=== PATIENT | female | born 1975 ===

== ENCOUNTER → 2021-06-10 07:26 | Outpatient (CLI) | payer OTHER | END | disposition home or self-care (01) | LOC: LAB 07:26 | PROVIDERS: ATTEND Obstetrics & Gynecology Gynecology | DX: R53.83 Other fatigue (principal); E78.49 Other hyperlipidemia; E55.9 Vitamin D deficiency, unspecified ==

== ENCOUNTER 2021-06-10 07:56 | Outpatient (CLI) | payer OTHER | END 2021-06-10 08:12 | disposition home or self-care (01) | LOC: MAMO-SONO 07:56 | DX: N64.89 Other specified disorders of breast (principal); Z12.31 Encounter for screening mammogram for malignant neoplasm of breast; N64.4 Mastodynia; D24.2 Benign neoplasm of left breast ==

== ENCOUNTER 2021-07-20 08:00 | Outpatient (CLI) | payer OTHER | END 2021-07-20 10:04 | disposition home or self-care (01) | LOC: MRI 08:00 | DX: M46.1 Sacroiliitis, not elsewhere classified (principal) | CPT/HCPCS: 72148 ==

== ENCOUNTER 2021-07-20 09:08 | Outpatient (CLI) | payer OTHER | END 2021-07-20 09:12 | disposition home or self-care (01) | LOC: LAB 09:08 | DX: L40.50 Arthropathic psoriasis, unspecified (principal) ==

== ENCOUNTER 2021-10-09 07:44 | Outpatient (CLI) | payer OTHER | END 2021-10-09 07:47 | disposition home or self-care (01) | LOC: SONOGRAMA 07:44 | PROVIDERS: ATTEND Obstetrics & Gynecology Gynecology | DX: N60.12 Diffuse cystic mastopathy of left breast (principal); N64.59 Other signs and symptoms in breast ==

== ENCOUNTER 2021-12-12 09:13 | Outpatient (CLI) | payer OTHER | END 2021-12-12 09:27 | disposition home or self-care (01) | LOC: LAB 09:13 | PROVIDERS: ATTEND Internal Medicine | DX: R53.83 Other fatigue (principal); R53.1 Weakness; E55.9 Vitamin D deficiency, unspecified; M79.10 Myalgia, unspecified site; M25.50 Pain in unspecified joint ==

== ENCOUNTER 2022-05-28 09:26 | Outpatient (CLI) | payer OTHER | END 2022-05-28 09:41 | disposition home or self-care (01) | LOC: SONOGRAMA 09:26 | PROVIDERS: ATTEND Orthopaedic Surgery Sports Medicine | DX: M75.51 Bursitis of right shoulder (principal); M75.52 Bursitis of left shoulder ==

== ENCOUNTER 2022-10-30 07:32 | Outpatient (CLI) | payer OTHER | END 2022-10-30 07:33 | disposition home or self-care (01) | LOC: LAB 07:32 | DX: E55.9 Vitamin D deficiency, unspecified (principal); M79.10 Myalgia, unspecified site; R53.83 Other fatigue; M25.50 Pain in unspecified joint; R53.1 Weakness; R53.82 Chronic fatigue, unspecified; E78.5 Hyperlipidemia, unspecified ==

== ENCOUNTER 2022-10-30 08:01 | Outpatient (CLI) | payer OTHER | END 2022-10-30 08:07 | disposition home or self-care (01) | LOC: RAD 08:01 | PROVIDERS: ATTEND Internal Medicine | DX: M25.541 Pain in joints of right hand (principal); M25.542 Pain in joints of left hand ==

== ENCOUNTER 2023-10-22 10:52 | Outpatient (CLI) | payer OTHER ==
[2023-10-22 11:34] LABS: URINE APPEARANCE Clear; URINE BILIRRUBIN Negative (NEGATIVE); URINE BLOOD Trace; URINE COLOR Yellow; URINE GLUCOSE Negative (NEGATIVE); URINE LEUKOCYTE Negative; URINE NITRATE Negative; URINE PROTEIN Negative (NEGATIVE); URINE UROBILINOGEN 0.2 E.U./dl
[2023-10-22 11:35] LABS: URINE BACTERIA 585.8 uL (0.0-1933); URINE EPITHELIAL CELLS 9.2 uL (0.0-38.8); URINE RBC 6.1 uL (0.0-20.8); URINE WBC 3.7 uL (0.0-23.2)
[2023-10-22 11:49] LABS: HEMATOCRIT 40.2 % (36.0-45.00); HEMOGLOBIN 13.8 g/dL (12.0-15.00); MEAN CELL VOLUME 89.4 fL (80.00-100.00); MEAN CORPUSCULAR HEMOGLOBIN 30.7 pg (27.00-32.0); MEAN CORPUSCULAR HGB CONC 34.4 g/dl (32.0-36.0); PLATELET COUNT 259 K/uL (150-450); RED CELL DISTRIBUTION WIDTH 12.9 % (11.5-14.5)
[2023-10-22 12:07] LABS: ALBUMIN 3.9 gm/dL (3.4-5.0); BILIRUBIN TOTAL 0.57 mg/dL (0.3-1.2); CALCIUM 9.1 mg/dL (8.5-10.1); CREATININE SERUM 0.65 mg/dL (0.55-1.02); GFR 96.88; GLOBULINA 2.8 G/DL (2.4-3.5); POTASSIUM 4.08 mEq/L (3.5-5.1); TOTAL PROTEIN 6.7 gm/dL (6.4-8.2); TSH 1.09 uIU/mL (0.358-3.74)
== END 2023-10-22 10:53 | disposition home or self-care (01) ==
LOC: LAB 10:52
PROVIDERS: ATTEND Obstetrics & Gynecology Gynecology
DX: R53.82 Chronic fatigue, unspecified (principal); E78.5 Hyperlipidemia, unspecified; E55.9 Vitamin D deficiency, unspecified

== ENCOUNTER 2023-12-23 07:27 | Outpatient (CLI) | payer OTHER | END 2023-12-23 07:36 | disposition home or self-care (01) | LOC: SONOGRAMA 07:27 | PROVIDERS: ATTEND Obstetrics & Gynecology Gynecology | DX: D25.0 Submucous leiomyoma of uterus (principal) ==

== ENCOUNTER 2024-05-31 07:18 | Outpatient (CLI) | payer OTHER | END 2024-05-31 07:20 | disposition home or self-care (01) | LOC: SONOGRAMA 07:18 | PROVIDERS: ATTEND Obstetrics & Gynecology Gynecology | DX: N63.21 Unspecified lump in the left breast, upper outer quadrant (principal) ==

== ENCOUNTER → 2025-01-24 13:42 | Outpatient (CLI) | payer OTHER | END | disposition home or self-care (01) | LOC: NUCLEAR 10:30 | PROVIDERS: ATTEND Obstetrics & Gynecology Gynecology | DX: M81.0 Age-related osteoporosis without current pathological fracture (principal) ==

== ENCOUNTER → 2025-01-24 15:34 | Outpatient (CLI) | payer OTHER ==
[2025-01-24 15:45] LABS: URINE APPEARANCE Clear; URINE BACTERIA 1571.5 uL (0.0-1933); URINE BILIRRUBIN Negative (NEGATIVE); URINE BLOOD Negative; URINE COLOR Yellow; URINE EPITHELIAL CELLS 11.8 uL (0.0-38.8); URINE GLUCOSE Negative (NEGATIVE); URINE KETONE 15 (NEGATIVE); URINE LEUKOCYTE Negative; URINE NITRATE Negative; URINE PROTEIN Negative (NEGATIVE); URINE UROBILINOGEN 0.2 E.U./dl; URINE WBC 12.3 uL (0.0-23.2)
[2025-01-24 15:47] LABS: ALBUMIN 3.9 gm/dL (3.4-5.0); BILIRUBIN TOTAL 0.51 mg/dL (0.3-1.2); CALCIUM 8.7 mg/dL (8.5-10.1); CHOL HDL RATIO 3.2 (0-5.0); CREATININE SERUM 0.6 mg/dL (0.55-1.02); GFR 105.82; GLOBULINA 2.4 G/DL (2.4-3.5); POTASSIUM 4.4 mEq/L (3.5-5.1); TOTAL PROTEIN 6.3 gm/dL (6.4-8.2); TSH 1.24 uIU/mL (0.358-3.74)
[2025-01-25 08:10] LABS: HEMATOCRIT 41.4 % (36.0-45.00); HEMOGLOBIN 14.2 g/dL (12.0-15.00); MEAN CELL VOLUME 90.8 fL (80.00-100.00); MEAN CORPUSCULAR HEMOGLOBIN 31.1 pg (27.00-32.0); MEAN CORPUSCULAR HGB CONC 34.2 g/dl (32.0-36.0); PLATELET COUNT 257 K/uL (150-450); RED BLOOD COUNT 4.56 M/uL (4.00-6.00)
== END | disposition home or self-care (01) ==
LOC: LAB 14:43
PROVIDERS: ATTEND Obstetrics & Gynecology Gynecology
DX: R53.82 Chronic fatigue, unspecified (principal); E78.5 Hyperlipidemia, unspecified; E55.9 Vitamin D deficiency, unspecified; Z12.11 Encounter for screening for malignant neoplasm of colon

== ENCOUNTER 2025-01-24 16:35 | Outpatient (CLI) | payer OTHER | END 2025-01-24 16:40 | disposition home or self-care (01) | LOC: SONOGRAMA 16:35 | PROVIDERS: ATTEND Obstetrics & Gynecology Gynecology | DX: D25.1 Intramural leiomyoma of uterus (principal) ==

== ENCOUNTER 2025-01-26 08:22 | Outpatient (CLI) | payer OTHER ==
[2025-01-26 11:25] LABS: ob NEGATIVE (NEGATIVE)
== END 2025-01-26 23:00 | disposition home or self-care (01) ==
LOC: LAB 08:22
PROVIDERS: ATTEND Obstetrics & Gynecology Gynecology
DX: R53.82 Chronic fatigue, unspecified (principal); E78.5 Hyperlipidemia, unspecified; E55.9 Vitamin D deficiency, unspecified; Z12.11 Encounter for screening for malignant neoplasm of colon